=== PATIENT | male | born 1975 | race Caucasian/White ===

== ENCOUNTER 2016-12-24 20:26 | Emergency (ER) | payer MEDICAID, MEDICARE, OTHER ==
[~2016-12-24] VITALS: Ht 172.7 cm; Wt 64.4 kg
[~2016-12-24 20:26] MED LIST: AZAT50TA18; MES400T
[2016-12-24 22:14] LABS: Albumin 3.8 g/dL (3.4-5.0); BUN/Creatinine Ratio 16.8; Calcium 8.7 mg/dL (8.5-10.1); Potassium 3.8 mmol/L (3.5-5.1)
[2016-12-24 22:17] LABS: Bilirubin, Total 0.7 mg/dL (0.2-1.0); Total Protein 8.9 g/dL (6.4-8.2)
[2016-12-24 22:27] LABS: Basophils # (auto) 0 uL; Basophils % (auto) 0.2 % (0.0-2.0); CONDITION Y; Eosinophils # (auto) 0.1 uL; Eosinophils % (auto) 1.2 % (0.0-7.0); Hematocrit 44.5 % (41.0-53.0); Hemoglobin 15.1 g/dL (13.5-17.5); Lymphocytes # (auto) 1.8 uL; Lymphocytes % (auto) 14.4 % (10.0-50.0); Mean Corpuscular Hgb Conc. 33.8 g/dL (32.0-36.0); Mean Corpuscular Volume 91.7 fL (80.0-100.0); Monocytes # (auto) 0.8 uL; Monocytes % (auto) 6.3 % (0.0-12.0); Neutrophils # (auto) 9.7 uL; Neutrophils % (auto) 77.9 % (37.0-80.0); Platelet Count (auto) 311 10^3/uL (140-450); White Blood Cell 12.5 10^3/uL (4.4-10.8)
[2016-12-25 03:50] LABS: Urine Bilirubin Negative (Negative); Urine Blood 1+ /uL (Negative); Urine Ca Oxalate Crystal FEW (None Seen); Urine Color Yellow (Yellow); Urine Glucose Normal (Normal); Urine Ketone 3+ (Negative); Urine Mucus FEW (None Seen); Urine Nitrite Negative (Negative); Urine RBC 21 /hpf (0 - 3); Urine Squamous Epithelial Cell FEW /hpf (<5)
[2016-12-25] MEDS ORDERED: ONDANSETRON HCL 4 MG/2 ML VIAL IV ONE (04:30)
[2016-12-25] MEDS ORDERED: SODIUM CHLORIDE 0.9% 1,000 ML IV ONE (04:30)
[2016-12-25 07:17] VITALS: BP 103/72
[2016-12-25] MEDS ORDERED: HYDROmorphone HCL 2 MG/ML VL IV ONE (08:15)
[2016-12-25] MEDS ORDERED: cefTRIAXone 1GM/50ML D5W 50 ML IV ONE (08:15)
== END 2016-12-25 18:53 | disposition home or self-care (01) ==
LOC: ER 20:37
DX: N45.1 Epididymitis (principal)
CPT/HCPCS: 36415; 76870; 80053; 81001; 85025; 96361; 96365; 96375; 99285; J0696; J1170; J2405; J7030

== ENCOUNTER 2022-08-20 20:48 | Emergency (ER) | payer MEDICARE, MEDICAID ==
[~2022-08-20 20:48] MED LIST changes: -AZAT50TA18; +AZAT50TA6
== END 2022-08-20 22:44 | disposition left against medical advice (07) ==
LOC: ER 20:51
DX: R10.9 Unspecified abdominal pain (principal); Z53.21 Procedure and treatment not carried out due to patient leaving prior to being seen by health care provider